=== PATIENT | male | born 1950 | race Caucasian/White ===

== ENCOUNTER → 2019-02-26 | Outpatient (CLI) | payer MEDICARE, BC | LOC: RAD 09:45 | DX: I65.23 Occlusion and stenosis of bilateral carotid arteries (principal); H53.122 Transient visual loss, left eye ==

== ENCOUNTER 2019-04-10 01:45 | Emergency (ER) | payer MEDICARE, BC ==
[2019-04-10 02:01] LABS: EOS # 0.2 (0.04-0.40); EOS % 2.3 % (0.0-4.0); HEMATOCRIT 49.3 % (42.0-52.0); HEMOGLOBIN 16.8 g/dL (13.5-18.0); LYMPH# 1.7 (1.50-4.00); MEAN CELL VOLUME 94 fl (78-100); MEAN CORPUSCULAR HEMOGLOBIN 32 pg (27-31); MEAN CORPUSCULAR HGB CONC 34 g/dL (33-37); MEAN PLATELET VOLUME 9.7 fl (7.4-10.4); MONO # 0.9 (0.20-0.80); NEU # 4.7 (1.40-6.50); PLATELET COUNT 214 K/mm3 (130-400); RED BLOOD COUNT 5.26 M/mm3 (4.20-5.60); RED CELL DISTRIBUTION WIDTH 13.1 % (11.5-14.5); WHITE BLOOD COUNT 7.5 K/mm3 (4.8-10.8)
[2019-04-10 02:11] LABS: POTASSIUM 3.1 mmol/L (3.5-5.1)
[2019-04-10 02:12] LABS: CALCIUM 9.5 mg/dL (8.3-10.5)
[2019-04-10 02:13] LABS: TOTAL PROTEIN 7.1 g/dL (6.2-8.1)
[2019-04-10 02:15] LABS: TOTAL BILIRUBIN 0.9 mg/dL (0.2-1.2)
[2019-04-10] MEDS ORDERED: ASPIR LOW81 MG PO (02:35)
[2019-04-10] MEDS ORDERED: GOOD NEIGHBOR100 M7 PO (02:36)
[2019-04-10] MEDS ORDERED: QUALITY CHOICE600 M1 PO (02:36)
[2019-04-10] MEDS ORDERED: GLUCOSAMINE &1 EACH PO (02:37)
[2019-04-10] MEDS ORDERED: HCTZ 25MG25 MG PO (02:37)
[2019-04-10] MEDS ORDERED: LEADER OMEPRAZO20 MG PO (02:38)
[2019-04-10] MEDS ORDERED: MASON NATURAL L20 MG PO (02:38)
[2019-04-10] MEDS ORDERED: MULTIPLE VITAMI1 TA5 PO (02:38)
[2019-04-10] MEDS ORDERED: VITAMIN E200 UNI1 PO (02:39)
[2019-04-10] MEDS ORDERED: ROSUVASTATIN CA10 MG PO (02:39)
[2019-04-10] MEDS ORDERED: POTASSIUM CHLO20 ME4 PO (04:36)
[2019-04-10 04:48] VITALS: BP 135/83
== END 2019-04-10 04:48 | disposition home or self-care (01) ==
LOC: ED 02:03
PROVIDERS: Physician Assistant
DX: E87.6 Hypokalemia (principal); R07.89 Other chest pain; I10 Essential (primary) hypertension; E78.5 Hyperlipidemia, unspecified; Z79.82 Long term (current) use of aspirin; Z88.8 Allergy status to other drugs, medicaments and biological substances